=== PATIENT | female | born 1965 | race Caucasian/White ===

== ENCOUNTER 2017-06-01 05:45 | Day surgery (SDC) | payer OTHER, MEDICAID ==
[2017-06-01] MEDS ORDERED: LACTATED RINGER'S 1,000 ML IV* (06:00)
[2017-06-01] MEDS ORDERED: CEFAZOLIN 2 GM/50 ML (PMX) 50 ML IVPB (06:00)
[2017-06-01] MEDS ORDERED: LIDOCAINE 2% (SDV) 5 ML INJ (07:40)
[2017-06-01] MEDS ORDERED: NEOSTIGMINE 3 MG/3 ML SYRINGE ×2 (07:40→08:08)
[2017-06-01] MEDS ORDERED: ROCURONIUM 50 MG INJ (07:40)
[2017-06-01] MEDS ORDERED: GLYCOPYRROLATE 0.4 MG INJ ×3 (07:40→08:08)
[2017-06-01] MEDS ORDERED: PROPOFOL 20 ML (07:40)
[2017-06-01] MEDS ORDERED: SUCCINYLCHOLINE CHLORIDE 100 MG/5 ML SYG IV (07:40)
[2017-06-01] MEDS ORDERED: MEPERIDINE 100 MG INJ (07:41)
[2017-06-01] MEDS ORDERED: METOCLOPRAMIDE 10 MG INJ IV (08:00)
[2017-06-01] MEDS ORDERED: DIPHENHYDRAMINE 50 MG INJ IV (08:00)
[2017-06-01] MEDS ORDERED: MEPERIDINE 25 MG INJ IV (08:00)
[2017-06-01] MEDS ORDERED: FENTAnyl 50 MCG/ML VIAL IV ×2 (08:00)
[2017-06-01] MEDS ORDERED: MIDAZOLAM 1 MG/ML 2 ML INJ IV (08:00)
[2017-06-01] MEDS ORDERED: HYDROmorphONE (0.2 MG/ML) 10ML SYG IV ×3 (08:00)
[2017-06-01] MEDS ORDERED: OXYCODONE/ACETAMINOPHEN (5/325) TAB PO ×2 (08:00)
[2017-06-01] MEDS ORDERED: LABETALOL HCL 20MG INJ IV (08:00)
[2017-06-01] MEDS ORDERED: EPHEDrine SULFATE 50 MG/5 ML SYG IV (08:00)
[2017-06-01] MEDS ORDERED: ONDANSETRON 4 MG INJ IV (08:00)
[2017-06-01] MEDS ORDERED: hydrALAzine 20 MG INJ IV (08:00)
[2017-06-01] MEDS ORDERED: CEFAZOLIN 1 GM INJ (08:02)
[2017-06-01] MEDS ORDERED: METOCLOPRAMIDE 10 MG INJ (08:23)
[2017-06-01] MEDS ORDERED: ONDANSETRON 4 MG INJ (08:23)
[2017-06-01] MEDS: FENTAnyl 50 MCG/ML VIAL IV ×4 (08:51→09:17)
== END 2017-06-01 10:28 | disposition home or self-care (01) ==
LOC: SDS 05:45
DX: N92.1 Excessive and frequent menstruation with irregular cycle (principal); N84.0 Polyp of corpus uteri; I10 Essential (primary) hypertension; J45.909 Unspecified asthma, uncomplicated
CPT/HCPCS: 58563; 88305